=== PATIENT | female | born 1965 | race Caucasian/White ===

== ENCOUNTER 2023-03-19 07:29 | Day surgery (SDC) | payer OTHER, SELFPAY ==
--- OUTSIDE RECORDS SUMMARY | 2023-03-19 07:41 | XMS RPT_ITS | CCD ---
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 [employer], Inc. 01-07-2019 11:10-0500 Body surface area Derived from formula 2.32 m2 Jazmin Mojica RN [facility], Inc.; [employer]rera [employer]. 01-07-2019 11:10-0500 Body temperature 98.5 [degF] Jazmin Mojica RN [facility], [facility].; [employer]. 01-07-2019 11:10-0500 Body weight 132.45 kg Jazmin Mojica RN [facility], [facility].; [employer]rera [employer]. 01-07-2019 11:10-0500 Diastolic blood pressure 85 mm[Hg] Jazmin Mojica RN [facility], Inc.; [employer]. 01-07-2019 11:10-0500 Heart rate 78 /min Jazmin Mojica RN [facility] [employer], Inc.; [employer]. 01-07-2019 11:10-0500 Inhaled oxygen concentration 20 % Jazmin Mojica RN [facility] [employer], Inc.; [employer]. 01-07-2019 11:10-0500 SaO2% (BldA) [Mass fraction] 96 % Jazmin Mojica RN [facility] [employer], Inc.; [employer]. 01-07-2019 11:10-0500 Systolic blood pressure 128 mm[Hg] Jazmin Mojica RN [facility] [employer], Inc.; [employer]. 12-09-2018 10:43-0400 Body height 165.1 cm Portia Marino LPN [employer], Inc.; [employer]. 12-09-2018 10:43-0400 Body mass index (BMI) [Ratio] 48.42 kg/m2 Portia Marino LPN [employer], Inc.; [employer]. 12-09-2018 10:43-0400 Body surface area Derived from formula 2.32 m2 Portia Marino LPN [employer], [employer].; [employer]. 12-09-2018 10:43-0400 Body weight 132 kg Portia Marino LPN [employer], Inc.; [employer]. 12-09-2018 10:43-0400 Diastolic blood pressure 62 mm[Hg] Portia Marino LPN [employer], Inc.; [employer]. 12-09-2018 10:43-0400 Heart rate 80 /min Portia Marino LPN [employer], Inc.; [employer]. 12-09-2018 10:43-0400 Systolic blood pressure 146 mm[Hg] Portia Marino LPN [employer], Inc.; [employer]. 10-28-2018 08:14-0400 Body height 165.1 cm Portia Marino LPN [employer], Inc.; [employer]. 10-28-2018 08:14-0400 Body mass index (BMI) [Ratio] 48.59 kg/m2 Portia Marino LPN [facility]reraAegerion Pharm[employer] [facility], Inc.; [employer], Inc. 10-28-2018 08:14-0400 Body surface area Derived from formula 2.32 m2 Portiamarck Marino LPN [facility], Inc.; [employer] Inc. 10-28-2018 08:140400 Body weight 132.45 kg Portia Marino LPN [facility], Inc.; [employer], Inc. 10-28-2018 08:14-0400 Diastolic blood pressure 80 mm[Hg] Portia [facility]ino [facility]PR[facility] HospitalEv[facility], Inc.; [employer]rera[employer], Inc. 10-28-2018 08:140400 Heart rate 69 /min Portia Marino LPN [facility], Inc.; [employer], Inc. 10-28-2018 08:14-0400 Systolic blood pressure 120 mm[Hg] Portia Marino LPN [employer], Inc.; [employer], Inc. 08-09-2018 11:20-0400 Body height 165.1 cm Portia Marino LPN [facility] [employer], Inc.; [employer], Inc. 08-09-2018 11:20-0400 Body mass index (BMI) [Ratio] 48.59 kg/m2 Portia Marino LPN [employer], Inc.; [employer] Inc. 08-09-2018 11:20-0400 Body surface area Derived from formula 2.32 m2 Portia Marino LPN [employer], Inc.; [employer]. 08-09-2018 11:20-0400 Body temperature 98.9 [degF] Portia Marino LPN [facility] chanel [employer], Inc.; HerreraEv[employer], Inc. 08-09-2018 11:20-0400 Body weight 132.45 kg Portia Marino LPN [facility] [employer], Inc[employer]i ly [employer], Inc.; [employer]rera[employer]et [employer] Inc. 08-09-2018 11:20-0400 Diastolic blood pressure 79 mm[Hg] Portia Marino LPN [employer], Inc.; [employer], Inc. 08-09-2018 11:20-0400 Heart rate 72 /min Portia Marino LPN [employer], Inc.; [employer], Inc. 08-09-2018 11:20-0400 Inhaled oxygen concentration 20 % Portia Marino LPN [employer], Inc.; [employer], Inc. 08-09-2018 11:20-0400 SaO2% (BldA) [Mass fraction] 95 % Portia Marino LPN [employer], Inc.; [employer], Inc. 08-09-2018 11:20-0400 Systolic blood pressure 127 mm[Hg] Portia Marino LPN [employer], Inc.; [employer], Inc. 05-29-2018 09:11-0400 Body height 165.1 cm Portia Marino LPN [employer], Inc.; [employer], Inc. 05-29-2018 09:11-0400 Body temperature 98.2 [degF] Portia Marino LPN [employer], [employer] chanel [employer], Inc.; [employer], Inc. 05-29-2018 09:11-0400 Diastolic blood pressure 88 mm[Hg] Portia Marino LPN [employer], Inc.; [employer], Inc. 05-29-2018 09:11-0400 Heart rate 67 /min Portia Marino LPN [employer] Inc.; [employer], Inc. 05-29-2018 09:11-0400 Inhaled oxygen concentration 20 % Portia Marino LPN [employer], Inc.; [employer], Inc. 05-29-2018 09:11-0400 SaO2% (BldA) [Mass fraction] 97 % Portia Marino LPN [employer], Inc.; [employer], Inc. 05-29-2018 09:11-0400 Systolic blood pressure 127 mm[Hg] Portia Marino LPN [employer], Inc.; [employer], Inc. 11-12-2017 09:25-0400 Body height 165.1 cm Portia Lamzeferino REN [facility], Inc.; [employer], Inc. 11-12-2017 09:25-0400 Body mass index (BMI) [Ratio] 46.52 kg/m2 Portia Goetzlise REN [employer], Inc.; [employer], Inc. 11-12-2017 09:25-0400 Body surface area Derived from formula 2.28 m2 Portia Goetzlise REN [employer], Inc.; [employer], Inc. 11-12-2017 09:250400 Body weight 126.81 kg Portia Goetzlise REN [facility], Inc.; [employer], Inc. 11-12-2017 09:25-0400 Diastolic blood pressure 79 mm[Hg] Portia Goetzlise REN [employer], Inc.; [employer], Inc. 11-12-2017 09:25-0400 Heart rate 75 /min Portia Goetzlise REN [facility], Inc.; [employer], Inc. 11-12-2017 09:25-0400 Systolic blood pressure 117 mm[Hg] Portia Islasleroy REN [employer], Inc.; [employer], Inc. 05-16-2017 09:10-0400 Body height 165.1 cm Theresa Vega PA-C Work Phone: [employer]et [employer] Inc.; [employer]reraEv[employer], Inc. 05-16-2017 09:10-0400 Body mass index (BMI) [Ratio] 50.92 kg/m2 Theresa Vega PA-C Work Phone: [employer].; [employer], Inc. 05-16-2017 09:100400 Body surface area Derived from formula 2.37 m2 Theresa Vega PA-C Work Phone: [employer].; [employer] Inc. 05-16-2017 09:10-0400 Body weight 138.8 kg Theresa Vega PA-C Work Phone: [employer].; [employer]. 05-16-2017 09:10-0400 Diastolic blood pressure 91 mm[Hg] Theresa Vega PA-C Work Phone: [employer].; [employer]. 05-16-2017 09:10-0400 Heart rate 79 /min Theresa Vega PA-C Work Phone: [employer].; [employer]. 05-16-2017 09:10-0400 Systolic blood pressure 141 mm[Hg] Theresa Vega PA-C Work Phone: [employer].; [employer]. 02-01-2017 11:23-0500 Body height 165.1 cm Portia Marino LPN [employer], Inc.; [employer] 02-01-2017 11:23-0500 Body mass index (BMI) [Ratio] 49.59 kg/m2 Portia Marino LPN [employer].; [employer]. 02-01-2017 11:23-0500 Body surface area Derived from formula 2.34 m2 Portia Marino LPN [employer].; [employer]. 02-01-2017 11:23-0500 Body temperature 98.5 [degF] Portia Marino LPN [employer] [employer], Inc[employer] chanel [employer].; [employer] 02-01-2017 11:23-0500 Body weight 135.17 kg Portia Marino LPN [employer], Inc.; [employer]. 02-01-2017 11:23-0500 Diastolic blood pressure 86 mm[Hg] Portia Marino LPN [employer].; [employer]. 02-01-2017 11:23-0500 Heart rate 92 /min Portia Marino LPN [employer], Inc.; [employer]. 02-01-2017 11:23-0500 Inhaled oxygen concentration 20 % Portia Marino LPN [facility], Inc.; [employer]. 02-01-2017 11:23-0500 SaO2% (BldA) [Mass fraction] 98 % Portia Marino LPN [facility] [employer], Inc.; [employer]. 02-01-2017 11:23-0500 Systolic blood pressure 140 mm[Hg] Portia Marino LPN [facility] [employer], Inc.; [employer], [employer]. 11-06-2016 10:32-0400 Body height 165.1 cm Portia Marino LPN [employer], Inc.; [employer]. 11-06-2016 10:32-0400 Body mass index (BMI) [Ratio] 48.92 kg/m2 Portia Marino LPN [employer], Inc.; [employer]. 11-06-2016 10:32-0400 Body surface area Derived from formula 2.33 m2 Portia Marino LPN [employer], Inc.; [employer]. 11-06-2016 10:32-0400 Body weight 133.36 kg Portia Marino LPN [employer], Inc.; [employer]. 11-06-2016 10:32-0400 Diastolic blood pressure 88 mm[Hg] Portia Marino LPN [employer], Inc.; [employer]. 11-06-2016 10:32-0400 Heart rate 69 /min Portia Marino LPN [facility], Inc.; [employer]. 11-06-2016 10:32-0400 Systolic blood pressure 156 mm[Hg] Portia Marino LPN [employer], Inc.; [employer]. 10-30-2016 08:00-0400 Body height 165.1 cm Portia Marino LPN [employer], Inc.; [employer]. 10-30-2016 08:00-0400 Body mass index (BMI) [Ratio] 48.92 kg/m2 Portia Marino LPN [facility]reraAegerion Pharm[employer] [facility], Inc.; [employer], Inc. 10-30-2016 08:00-0400 Body surface area Derived from formula 2.33 m2 Portia Marino LPN [facility], Inc.; [employer], Inc. 10-30-2016 08:00-0400 Body weight 133.36 kg Portia Marino LPN [facility], Inc.; [employer], Inc. 10-30-2016 08:00-0400 Diastolic blood pressure 93 mm[Hg] Portia Marino LPN [employer]Aegerion [employer] [facility], Inc.; [employer], Inc. 10-30-2016 08:00-0400 Heart rate 67 /min Portia Marino LPN [facility], Inc.; [employer], Inc. 10-30-2016 08:00-0400 Systolic blood pressure 143 mm[Hg] Portia Marino LPN [employer], Inc.; [employer], Inc. 10-12-2016 16:20-0400 Diastolic blood pressure 87 mm[Hg] Jazmin Mojica RN [facility], Inc.; [employer], Inc. 10-12-2016 16:20-0400 Heart rate 77 /min Jazmin Mojica RN [facility] [employer], Inc.; [employer], Inc. 10-12-2016 16:20-0400 Systolic blood pressure 145 mm[Hg] Jazmin Mojica RN [facility] [employer], Inc.; [employer], Inc. 07-14-2016 14:35-0400 Body height 165.1 cm Nona Caicedo RN [facility]reraAegerion Pharm[employer] [facility], Inc.; [employer], Inc. 07-14-2016 14:35-0400 Body mass index (BMI) [Ratio] 47.59 kg/m2 Nona Caicedo RN [facility] [employer], Inc.; [employer], Inc. 07-14-2016 14:35-0400 Body surface area Derived from formula 2.3 m2 Nona Caicedo RN [facility] [employer], Inc.; [employer], [facility]. 07-14-2016 14:35-0400 Body weight 129.73 kg Nona Caicedo RN [facility], Inc.; [employer]. 07-14-2016 14:35-0400 Diastolic blood pressure 76 mm[Hg] Nona Caicedo RN [facility], Inc.; [employer] Inc. 07-14-2016 14:35-0400 Heart rate 85 /min Nona Caicedo RN [facility] Inc.; [employer]. 07-14-2016 14:35-0400 Systolic blood pressure 126 mm[Hg] Nona Caicedo RN [facility] [employer] Inc.; [employer]. 04-20-2016 10:15-0500 Body height 162.56 cm Portia Marino LPN [employer], Inc.; [employer]. 04-20-2016 10:15-0500 Body mass index (BMI) [Ratio] 48.4 kg/m2 Portia Marino LPN [employer]. 04-20-2016 10:15-0500 Body surface area Derived from formula 2.26 m2 Portia Marino LPN [employer], Inc.; [employer], [employer]. 04-20-2016 10:15-0500 Body weight 127.92 kg Portia Marino LPN [facility], Inc.; [employer]. 04-20-2016 10:15-0500 Diastolic blood pressure 84 mm[Hg] Portia Marino LPN [employer] Inc.; [employer]. 04-20-2016 10:15-0500 Heart rate 71 /min Portia Marino LPN [employer], Inc.; [employer]. 04-20-2016 10:15-0500 Systolic blood pressure 124 mm[Hg] Portia Marino LPN [employer] Inc.; [employer]. 03-16-2016 14:22-0500 Body height 162.56 cm Lynn Sepulveda LPN [employer], [employer]. 03-16-2016 14:22-0500 Body mass index (BMI) [Ratio] 48.92 kg/m2 Lynn K Mutersbaugh REMEDIATION CONSULTANT [employer], Inc.; [employer]. 03-16-2016 14:22-0500 Body surface area Derived from formula 2.27 m2 Lynn K Mutersbaugh REMEDIATION CONSULTANT [employer] Inc.; [employer]. 03-16-2016 14:22-0500 Body weight 129.28 kg Lynn K Mutersbaugh REMEDIATION CONSULTANT [employer].; [employer]. 03-16-2016 14:22-0500 Diastolic blood pressure 82 mm[Hg] Lynn K Mutersbaugh REMEDIATION CONSULTANT [employer].; [employer]. 03-16-2016 14:22-0500 Heart rate 86 /min Lynn K Mutersbaugh REMEDIATION CONSULTANT [employer].; [employer]. 03-16-2016 14:22-0500 Systolic blood pressure 143 mm[Hg] Lynn K Mutersbaugh REMEDIATION CONSULTANT [employer].; [employer]. 12-15-2015 14:06-0400 Body height 162.56 cm Claudia Stone RN [employer].; [employer]. 12-15-2015 14:06-0400 Body mass index (BMI) [Ratio] 50.17 kg/m2 Claudia Stone RN [employer].; [employer]. 12-15-2015 14:06-0400 Body surface area Derived from formula 2.3 m2 Claudia Stone RN [employer].; [employer]. 12-15-2015 14:06-0400 Body temperature 99.6 [degF] Claudia Stone RN [employer].; [employer]. 12-15-2015 14:06-0400 Body weight 132.59 kg Claudia Stone RN [employer].; [employer]. 12-15-2015 14:06-0400 Diastolic blood pressure 76 mm[Hg] Claudia Stone RN [facility] [employer], Inc.; [employer], Inc. 12-15-2015 14:06-0400 Heart rate 78 /min Claudia Stone RN [facility] [employer], Inc.; [employer], Inc. 12-15-2015 14:06-0400 Systolic blood pressure 136 mm[Hg] Claudia Stone RN [facility] [employer], Inc.; [employer], Inc. 09-24-2015 09:24-0400 Body height 162.56 cm Portia Marino LPN [employer], Inc.; [employer], Inc. 09-24-2015 09:24-0400 Body mass index (BMI) [Ratio] 50.46 kg/m2 Portia Marino LPN [employer], Inc.; [employer], Inc. 09-24-2015 09:24-0400 Body surface area Derived from formula 2.3 m2 Portia Marino LPN [employer], Inc.; [employer], Inc. 09-24-2015 09:24-0400 Body weight 133.36 kg Portia Marino LPN [employer], Inc.; [employer], Inc. 09-24-2015 09:24-0400 Diastolic blood pressure 86 mm[Hg] Portia Marino LPN [employer], Inc.; [employer], Inc. 09-24-2015 09:24-0400 Heart rate 76 /min Portia Marino LPN [employer], Inc.; [employer], Inc. 09-24-2015 09:24-0400 Systolic blood pressure 129 mm[Hg] Portia Marino LPN [employer], Inc.; [employer], Inc. 09-13-2015 17:19-0400 Body height 162.56 cm Portia Marino LPN [employer], Inc.; [employer], Inc. 09-13-2015 17:19-0400 Body mass index (BMI) [Ratio] 49.78 kg/m2 Portia Marino LPN [employer], Inc.; [employer] 09-13-2015 17:19-0400 Body surface area Derived from formula 2.29 m2 Portia Marino LPN [employer], Inc.; [employer], Inc. 09-13-2015 17:19-0400 Body weight 131.54 kg Portia Ned REN [facility], Inc.; [employer], Inc. 09-13-2015 17:19-0400 Diastolic blood pressure 91 mm[Hg] Portia Marino LPN [employer], Inc.; [employer], Inc. 09-13-2015 17:19-0400 Heart rate 80 /min Portia Marino LPN [facility], Inc.; [employer], Inc. 09-13-2015 17:19-0400 Systolic blood pressure 150 mm[Hg] Portia Marino LPN [employer], Inc.; [employer], Inc. 03-22-2015 08:07-0500 Body height 162.56 cm Claudia Stone RN [facility] [employer], Inc.; [employer], Inc. 03-22-2015 08:07-0500 Body mass index (BMI) [Ratio] 52.18 kg/m2 Claudia Stone RN [employer], Inc.; [employer], Inc. 03-22-2015 08:07-0500 Body surface area Derived from formula 2.34 m2 Claudia Stone RN [employer], Inc.; [employer], Inc. 03-22-2015 08:07-0500 Body temperature 98.7 [degF] Claudia Stone RN [employer]et [employer] Inc.; [employer], Inc. 03-22-2015 08:07-0500 Body weight 137.89 kg Claudia Stone RN [employer], Inc.; [employer], Inc. 03-22-2015 08:07-0500 Diastolic blood pressure 85 mm[Hg] Claudia Stone RN [employer], Inc.; [employer] 03-22-2015 08:07-0500 Heart rate 87 /min Claudia Stone RN [employer].; [employer] [facility]. 03-22-2015 08:07-0500 Systolic blood pressure 147 mm[Hg] Claudia Stone RN [facility].; [employer] [facility]. 02-15-2015 17:00-0500 Body weight 140.16 kg Theresa Iesha Vega PA-C Work Phone: [employer] 02-15-2015 17:00-0500 Diastolic blood pressure 92 mm[Hg] Theresa J Vega PA-C Work Phone: [employer] 02-15-2015 17:00-0500 Heart rate 74 /min Theresa Iesha Vega PA-C Work Phone: [employer]. 02-15-2015 17:00-0500 Systolic blood pressure 134 mm[Hg] Theresa Iesha Vega PA-C Work Phone: [employer]. 07-31-2014 11:32-0400 Body height 162.56 cm Theresa Iesha Vega PA-C Work Phone: [employer]. 07-31-2014 11:32-0400 Body mass index (BMI) [Ratio] 49.78 kg/m2 Theresa Iesha Vega PA-C Work Phone: [employer]. 07-31-2014 11:32-0400 Body surface area Derived from formula 2.29 m2 Theresa J Vega PA-C Work Phone: [employer]. 07-31-2014 11:32-0400 Body temperature 99 [degF] Theresa J Vega PA-C Work Phone: [employer]. 07-31-2014 11:32-0400 Body weight 131.54 kg Theresa J Vega PA-C Work Phone: [employer]. 07-31-2014 11:32-0400 Diastolic blood pressure 93 mm[Hg] Theresa Julian Vega PA-C Work Phone: [employer] 07-31-2014 11:32-0400 Heart rate 74 /min Theresa Julian Vega PA-C Work Phone: [employer]. 07-31-2014 11:32-0400 Systolic blood pressure 143 mm[Hg] Theresa Julian Vega PA-C Work Phone: [employer]. 07-13-2014 17:00-0400 Body height 162.56 cm Theresa Julian Vega PA-C Work Phone: [employer]. 07-13-2014 17:00-0400 Body mass index (BMI) [Ratio] 50.46 kg/m2 Theresa Julian Vega PA-C Work Phone: [employer]. 07-13-2014 17:00-0400 Body surface area Derived from formula 2.3 m2 Theresa Julian Vega PA-C Work Phone: [employer]. 07-13-2014 17:00-0400 Body weight 133.36 kg Theresa Julian Vega PA-C Work Phone: [employer]. 07-13-2014 17:00-0400 Diastolic blood pressure 80 mm[Hg] Theresa Iesha Vega PA-C Work Phone: [employer]. 07-13-2014 17:00-0400 Heart rate 79 /min Theresa Iesha Vega PA-C Work Phone: [employer] 07-13-2014 17:00-0400 Systolic blood pressure 115 mm[Hg] Theresa Vega PA-C Work Phone: [employer] 06-08-2014 17:09-0400 Body weight 129.73 kg Leslee Bahena LPN [employer] 06-08-2014 17:09-0400 Diastolic blood pressure 95 mm[Hg] Leslee Bahena LPN [employer] 06-08-2014 17:09-0400 Heart rate 72 /min Leslee Bahena LPN [employer] 06-08-2014 17:09-0400 Systolic blood pressure 139 mm[Hg] Leslee Bahena LPN [employer] 10-16-2013 16:07-0400 Body weight 119.3 kg Portia Marino LPN [employer] 10-16-2013 16:07-0400 Diastolic blood pressure 80 mm[Hg] Portia Marino LPN [employer] 10-16-2013 16:07-0400 Heart rate 72 /min Portia Marino LPN [employer] 10-16-2013 16:07-0400 Systolic blood pressure 118 mm[Hg] Portia Marino LPN [employer] 09-18-2013 09:18-0400 Body weight 123.83 kg Theresa Vega PA-C Work Phone: [employer] 09-18-2013 09:18-0400 Diastolic blood pressure 104 mm[Hg] Theresa Vega PA-C Work Phone: [employer] 09-18-2013 09:18-0400 Heart rate 75 /min Theresa Vega PA-C Work Phone: [employer] 09-18-2013 09:18-0400 Systolic blood pressure 163 mm[Hg] Theresa Vega PA-C Work Phone: [employer] Encounters Encounter Date Encounter Type Care Provider Facility Start: 01-26-2023 End: 01-26-2023 Theresa Vigiler PA-C Work Phone: [employer]. Start: 01-24-2023 End: 01-24-2023 Theresa Vega PA-C Work Phone: [employer]. Start: 01-22-2023 End: 01-22-2023 Theresa Vega PA-C Work Phone: [employer]. Start: 01-18-2023 End: 01-18-2023 Theresa Vega PA-C Work Phone: [employer]. Start: 01-12-2023 End: 01-12-2023 Office outpatient visit 25 minutes Theresa Vigiler PA-C Work Phone: [employer]. Start: 09-18-2022 End: 09-18-2022 Theresa Vega PA-C Work Phone: [employer]. Start: 08-23-2022 End: 08-23-2022 ambulatory THERESA VEGA [facility] Start: 08-21-2022 End: 08-21-2022 Evaluation finding Theresa Vega PA-C Work Phone: [employer]. Start: 08-21-2022 End: 08-21-2022 Theresa Vega PA-C Work Phone: [employer]. Start: 08-21-2022 End: 08-21-2022 Theresa Vega PA-C [facility]: [facility] Start: 07-26-2022 End: 07-26-2022 Patient encounter status [facility].; [facility]. Start: 07-26-2022 End: 07-26-2022 Theresa Vega PA-C Work Phone: [facility]. Start: 07-05-2022 End: 07-05-2022 Theresa Vega PA-C Work Phone: [facility]. Start: 06-09-2022 End: 06-09-2022 Office outpatient visit 15 minutes Theresa Vega PA-C Work Phone: [facility] Start: 03-03-2022 End: 03-03-2022 ambulatory [facility] Start: 01-30-2022 End: 01-30-2022 Theresa Vega PA-C Work Phone: [facility]. Start: 01-24-2022 End: 01-24-2022 Office outpatient visit 15 minutes Theresa Vega PA-C Work Phone: [facility] Start: 01-13-2022 End: 01-13-2022 Theresa Vega PA-C Work Phone: [facility] Start: 01-10-2022 End: 01-10-2022 ambulatory [facility] Start: 12-30-2021 End: 12-30-2021 Office outpatient visit 25 minutes Theresa Vega PA-C Work Phone: [facility] Start: 11-18-2021 End: 11-18-2021 Theresa Vega PA-C Work Phone: [facility]. Start: 08-05-2021 End: 08-05-2021 Theresa Vega PA-C Work Phone: [facility] [employer]. Start: 06-23-2021 End: 06-23-2021 Patient encounter status Theresa Vega PA-C Work Phone: [employer]. Start: 06-23-2021 End: 06-23-2021 Theresa Vega PA-C Work Phone: [employer]. Start: 05-30-2021 End: 05-30-2021 Office outpatient visit 15 minutes Theresa Vega PA-C Work Phone: [employer]. Start: 05-06-2021 End: 05-06-2021 Office outpatient visit 15 minutes Theresa Vega PA-C Work Phone: [employer]. Start: 04-29-2021 End: 04-29-2021 Theresa Vega PA-C Work Phone: [employer]. Start: 02-09-2021 End: 02-10-2021 Theresa Vega PA-C Work Phone: [employer]. Start: 02-03-2021 End: 02-03-2021 Office outpatient visit 15 minutes Theresa Vega PA-C Work Phone: [employer]. Start: 01-24-2021 End: 01-24-2021 Theresa Vega PA-C Work Phone: [employer]. Start: 11-19-2020 End: 11-19-2020 Office outpatient visit 15 minutes Theresa Vega PA-C Work Phone: [employer]. Start: 11-10-2020 End: 11-10-2020 Office outpatient visit 15 minutes Theresa Vega PA-C Work Phone: [employer]. Start: 11-08-2020 End: 11-08-2020 Theresa Vega PA-C Work Phone: [employer]. Start: 11-08-2020 End: 11-08-2020 Theresa Vega PA-C Work Phone: [employer] Start: 11-05-2020 End: 11-05-2020 Office outpatient visit 15 minutes Theresa Vega PA-C Work Phone: [employer]. Start: 05-20-2020 End: 05-20-2020 Office outpatient visit 25 minutes Theresa Vega PA-C Work Phone: [employer]. Start: 05-06-2020 End: 05-06-2020 Theresa Vega PA-C Work Phone: [employer] Start: 12-05-2019 End: 12-05-2019 Office outpatient visit 15 minutes Theresa Vega PA-C Work Phone: [employer] Start: 06-12-2019 End: 06-12-2019 Office outpatient visit 25 minutes Theresa Vega PA-C Work Phone: [employer] Start: 03-31-2019 End: 03-31-2019 Theresa Vega PA-C Work Phone: [employer] Start: 03-20-2019 End: 03-20-2019 Office outpatient visit 15 minutes Theresa Vega PA-C Work Phone: [employer] Start: 01-07-2019 End: 01-07-2019 Office outpatient visit 15 minutes Theresa Vega PA-C Work Phone: [employer] Start: 12-09-2018 End: 12-09-2018 Medical examinations/reports status Theresa Vega PA-C Work Phone: [employer]; [employer]. Start: 12-09-2018 End: 12-09-2018 Periodic preventive med est patient 40-64yrs Theresa Vega PA-C Work Phone: [employer]. Start: 10-28-2018 End: 10-28-2018 Office outpatient visit 15 minutes Theresa Vega PA-C Work Phone: [employer]. Start: 09-23-2018 End: 09-23-2018 Theresa Vega PA-C Work Phone: [employer]. Start: 09-13-2018 End: 09-13-2018 Theresa Vega PA-C Work Phone: [employer]. Start: 09-06-2018 End: 09-06-2018 Theresa Vega PA-C Work Phone: [employer]. Start: 08-09-2018 End: 08-09-2018 Office outpatient visit 15 minutes Theresa Vega PA-C Work Phone: [employer]. Start: 06-03-2018 End: 06-03-2018 Theresa Vega PA-C Work Phone: [employer]. Start: 05-29-2018 End: 05-29-2018 Office outpatient visit 25 minutes Theresa Vega PA-C Work Phone: [employer]. Start: 05-17-2018 End: 05-17-2018 Theresa Vega PA-C Work Phone: [employer]. Start: 01-02-2018 End: 01-02-2018 Theresa Vega PA-C Work Phone: [employer]. Start: 11-12-2017 End: 11-12-2017 Medical examinations/reports status Portia Marino LPN [employer]. Start: 11-12-2017 End: 11-12-2017 Periodic preventive med est patient 40-64yrs Theresa Vega PA-C Work Phone: [employer]. Start: 09-03-2017 End: 09-03-2017 Theresa Vega PA-C Work Phone: [employer] Start: 08-06-2017 End: 08-06-2017 Theresa Vega PA-C Work Phone: [employer] Start: 07-06-2017 End: 07-06-2017 Theresa Vega PA-C Work Phone: [employer]. Start: 07-05-2017 End: 07-05-2017 Theresa Vega PA-C Work Phone: [employer]. Start: 06-06-2017 End: 06-06-2017 Theresa Vega PA-C Work Phone: [employer]. Start: 05-30-2017 End: 05-31-2017 Theresa Vega PA-C Work Phone: [employer]. Start: 05-23-2017 End: 05-24-2017 Theresa Vega PA-C Work Phone: [employer]. Start: 05-16-2017 End: 05-16-2017 Office outpatient visit 25 minutes Theresa Vega PA-C Work Phone: [employer]. Start: 05-14-2017 End: 05-14-2017 Theresa Vega PA-C Work Phone: [employer]. Start: 05-09-2017 End: 05-09-2017 Theresa Vega PA-C Work Phone: [employer]. Start: 02-01-2017 End: 02-01-2017 Office outpatient visit 15 minutes Theresa Vega PA-C Work Phone: [employer]. Start: 11-06-2016 End: 11-09-2016 Office outpatient visit 15 minutes Theresa Vega PA-C Work Phone: [employer]. Start: 10-30-2016 End: 10-30-2016 Office outpatient visit 15 minutes Theresa Vega PA-C Work Phone: [employer]. Start: 10-12-2016 End: 10-12-2016 Theresa Vega PA-C Work Phone: [employer]. Start: 10-05-2016 End: 10-06-2016 Theresa Vega PA-C Work Phone: [employer]. Start: 09-07-2016 End: 09-07-2016 Theresa Vega PA-C Work Phone: [employer]. Start: 08-18-2016 End: 08-18-2016 Theresa Vega PA-C Work Phone: [employer]. Start: 08-11-2016 End: 08-11-2016 Theresa Vega PA-C Work Phone: [employer]. Start: 08-10-2016 End: 08-10-2016 Theresa Vega PA-C Work Phone: [employer]. Start: 08-04-2016 End: 08-04-2016 Sixto POON [facility] Start: 08-03-2016 End: 08-03-2016 Theresa Vega PA-C Work Phone: [employer]. Start: 07-27-2016 End: 07-27-2016 Theresa Vega PA-C Work Phone: [employer]. Start: 07-20-2016 End: 07-20-2016 Theresa Vega PA-C Work Phone: [employer]. Start: 07-17-2016 End: 07-17-2016 Theresa Vega PA-C Work Phone: [employer]. Start: 07-14-2016 End: 07-17-2016 Theresa Vega PA-C Work Phone: [employer]. Start: 04-27-2016 End: 04-27-2016 Theresa Vega PA-C Work Phone: [employer]. Start: 04-20-2016 End: 04-23-2016 Patient encounter status Theresa Vega PA-C Work Phone: [employer]. Start: 04-20-2016 End: 04-23-2016 Periodic preventive med est patient 40-64yrs Theresa Vega PA-C Work Phone: [employer] Start: 04-19-2016 End: 04-19-2016 Theresa Vega PA-C Work Phone: [employer] Start: 04-11-2016 End: 04-12-2016 Theresa Vega PA-C Work Phone: [employer] Start: 03-20-2016 End: 03-20-2016 Theresa Vega PA-C Work Phone: [employer]. Start: 03-16-2016 End: 03-16-2016 Theresa Vega PA-C Work Phone: [employer]. Start: 12-15-2015 End: 12-15-2015 Theresa Vega PA-C Work Phone: [employer] Start: 09-24-2015 End: 09-24-2015 Theresa Vega PA-C Work Phone: [employer]. Start: 09-13-2015 End: 09-13-2015 Theresa Vega PA-C Work Phone: [employer]. Start: 03-22-2015 End: 03-22-2015 Theresa Vega PA-C Work Phone: [employer] Start: 03-22-2015 End: 03-22-2015 Theresa Vega PA-C Work Phone: [employer]. Start: 02-15-2015 End: 02-15-2015 Theresa Vega PA-C Work Phone: [employer]. Start: 10-12-2014 End: 10-12-2014 Theresa Vega PA-C Work Phone: [employer]. Start: 07-31-2014 End: 07-31-2014 Theresa Vega PA-C Work Phone: [facility] Start: 07-16-2014 End: 07-16-2014 Theresa Vega PA-C Work Phone: [facility]. Start: 07-13-2014 End: 07-15-2014 Routine gynecological examination Theresa Vega PA-C Work Phone: [facility].; [facility]. Start: 07-13-2014 End: 07-15-2014 Theresa Vega PA-C Work Phone: [employer] [facility]. Start: 06-19-2014 End: 06-22-2014 Theresa Vega PA-C Work Phone: [facility]. Start: 06-08-2014 End: 06-08-2014 Theresa Vega PA-C Work Phone: [facility]. Start: 10-16-2013 End: 10-16-2013 Theresa Vega PA-C Work Phone: [employer] [facility]. Start: 09-18-2013 End: 09-18-2013 Theresa Vega PA-C Work Phone: [employer] [facility]. Start: 06-23-2010 End: 06-23-2010 Theresa Vega PA-C Work Phone: [employer] [facility]. Start: 06-23-2010 End: 06-23-2010 Theresa Vega PA-C Work Phone: [employer] [facility]. Start: 06-09-2010 End: 06-10-2010 Theresa Vega PA-C Work Phone: [facility]. Start: 04-26-2010 End: 04-27-2010 Theresa Vega PA-C Work Phone: [facility] Evaluation finding Dhruv Valle LPN [facility], [facility].; [facility]. Medical examinations/reports status Ginny Monroe LPN [facility].; [facility] Patient encounter status Dhruv Valle REM[employer]IATION CONSULTANT [facility].; [facility] Patient encounter status Portia Ned REMEDIATION CONSULTANT [facility].; [facility] Routine gynecologica l examination Ginny Monroe REMEDIATION CONSULTANT [facility].; [facility] Procedures Date Procedure Procedure Detail Performing Clinician Start: 08-21-2022 End: 08-24-2022 Ct abdomen & pelvis w/contrast material Theresa Vega PA-C Work Phone: Start: 07-26-2022 End: 07-26-2022 Depression screening Jena Up REMEDIATION CONSULTANT Start: 07-26-2022 End: 07-26-2022 Scr dep neg, no plan reqd Jena bailey REMEDIATION CONSULTANT Start: 07-05-2022 End: 07-05-2022 Lab findings surveillance Jena marieer REMEDIATION CONSULTANT Start: 07-05-2022 End: 07-05-2022 Jena Annel L PN Start: 07-05-2022 End: 07-05-2022 Jena Annel L PN Start: 12-30-2021 End: 03-03-2022 Screening digital breast tomosynthesis bi Theresa YADAV-C Work Phone: Start: 12-30-2021 End: 01-11-2022 Us soft tissue head & neck real time imge docm Theresa YADAV-C Work Phone: Start: 06-23-2021 End: 06-23-2021 Depression screening Theresa YADAV -C Work Phone: Start: 06-23-2021 End: 06-23-2021 Microscopic examination of cervical Papanicolaou smear Jenanewton Up REMEDIATION CONSULTANT Start: 06-23-2021 End: 06-23-2021 Scr dep neg, no plan reqd Theresa dyer PA-C Work Phone: Start: 01-24-2021 End: 02-02-2021 Screening mammography bi 2-view breast inc cad Theresa MORELANDC Work Phone: Start: 01-12-2021 End: 01-12-2021 Screening mammography Jena Up REMEDIATION CONSULTANT Start: 11-10-2020 End: 11-10-2020 Pressurized/nonpressurized inhalation treatment Theresa Julian Vega PA-C Work Phone: Start: 11-08-2020 End: 11-08-2020 Radiologic exam chest 2 views Theresa Julian Vega PA-C Work Phone: Start: 05-20-2020 End: 05-21-2020 Radex foot complete minimum 3 views Theresa Julian Vega PA-C Work Phone: Start: 12-09-2018 End: 12-09-2018 Depression screening Theresa Julian Vega PA -C Work Phone: Start: 12-09-2018 End: 12-09-2018 Scr dep neg, no plan reqd Theresa Julian Yaritza er PA-C Work Phone: Start: 09-06-2018 End: 09-13-2018 Ct maxillofacial w/o contrast material Theresa Julian Vega PA-C Work Phone: Start: 08-06-2017 End: 08-06-2017 Vitamin b12 injection Theresa Julian Vega P A-C Work Phone: Start: 07-05-2017 End: 07-05-2017 Vitamin b12 injection Theresa Julian Vega P A-C Work Phone: Start: 06-06-2017 End: 06-06-2017 Vitamin b12 injection Theresa Julian Vega P A-C Work Phone: Start: 05-30-2017 End: 05-30-2017 Vitamin b12 injection Theresa Julian Vega P A-C Work Phone: Start: 05-23-2017 End: 05-23-2017 Vitamin b12 injection Theresa Julian Vega P A-C Work Phone: Start: 05-16-2017 End: 05-16-2017 Body mass index documented Theresa Julian Bipin brenda PA-C Work Phone: Start: 05-16-2017 End: 05-16-2017 Most recent diastol blood pres >/equal 90 mm hg Theresa Julian Vega PA-C Work Phone: Start: 05-16-2017 End: 05-16-2017 Most recent systolic blood pres>/equal 140 mm hg Theresa Julian Vega PA-C Work Phone: Start: 05-16-2017 End: 05-16-2017 Vitamin b12 injection Theresa Julian Vega P A-C Work Phone: Start: 02-01-2017 End: 02-01-2017 Body mass index documented Theresa Julian Pal brenda PA-C Work Phone: Start: 02-01-2017 End: 02-01-2017 Most recent diastolic blood pressure 80-89 mm hg Theresa Jluian Vega PA-C Work Phone: Start: 02-01-2017 End: 02-01-2017 Most recent systolic blood pres>/equal 140 mm hg Theresa Julian Vega PA-C Work Phone: Start: 11-06-2016 End: 11-08-2016 Radiologic exam knee complete 4/more views Theresa Julian Vega PA-C Work Phone: Start: 10-30-2016 End: 10-30-2016 Vitamin b12 injection Theresa Julian Vega P A-C Work Phone: Start: 10-05-2016 End: 10-05-2016 Vitamin b12 injection Theresa Julian Vega P A-C Work Phone: Start: 09-07-2016 End: 09-07-2016 Vitamin b12 injection Theresa Julian Vega P A-C Work Phone: Start: 08-10-2016 End: 08-10-2016 Vitamin b12 injection Theresa Julian Vega P A-C Work Phone: Start: 08-04-2016 End: 08-04-2016 Screening for malignant neoplasm of large intestine Jena Up LPN Start: 08-03-2016 End: 08-03-2016 Vitamin b12 injection Theresa Julian Vega P A-C Work Phone: Start: 07-27-2016 End: 07-27-2016 Vitamin b12 injection Theresa Julian Gary Rivera-C Work Phone: Start: 07-20-2016 End: 07-20-2016 Vitamin b12 injection Theresa Julian Gary Rivera-C Work Phone: Start: 07-17-2016 End: 07-17-2016 Jena Elizabeth PN Start: 04-27-2016 End: 05-03-2016 Radex fingr minimum 2 views Theresaamber soto PA-C Work Phone: Start: 04-20-2016 End: 11-14-2016 Depression screen annual hTeresa monsivais PA-C Work Phone: Start: 04-20-2016 End: 06-08-2016 Mammogram, screening Theresa Beatty Work Phone: Start: 09-13-2015 End: 09-14-2015 Dup-scan xtr veins unilateral/limited study Theresa Vega PA-C Work Phone: Start: 03-22-2015 End: 03-22-2015 Ceftriaxone sodium injection Jazmin Nguyễn PA-C Work Phone: Start: 07-13-2014 End: 07-13-2014 Cholecystectomy Jena Elizabeth PN section Jena Carloz du REMEDIATION CONSULTANT History of cholecystectomy J noemi Fer REMEDIATION CONSULTANT History of cholecystectomy Paula Vega PA-C Work Phone: History of cholecystectomy Paula asim Vega PA-C Work Phone: Plan of Treatment Date Care Activity Detail Author Start: 02-21-2023 Blood count reticulo cyte automated [facility] [employer] Start: 01-26-2023 Radex spine lumbosacral 2/3 views [facility] [employer] Start: 01-26-2023 Radex spine thoracic 2 views [facility] [employer] [facility] Start: 06-23-2021 [facility], [facility].; [facility] Start: 11-05-2020 Sars-cov-2 detection by dna/rna [employer]. Start: 03-20-2019 Screening mammograph y bi 2-view breast inc cad [employer] Start: 11-12-2017 Screening mammograph y bi 2-view breast inc cad [employer]. [employer] Immunizations Immunization Date Immunization Notes Care Provider Fa cilikalin 04-16-2020 Theresa Vega PA-C Work Phone: [employer] 03-19-2020 Theresa Vega PA-C Work Phone: [employer] 12-09-2018 influenza, injectabl e, quadrivalent, contains preservative Theresa Vega PA-C Work Phone: [employer] 03-22-2015 tetanus toxoid, reduced diphtheria toxoid, and acellular pertussis vaccine, adsorbed Theresa Vega PA-C Work Phone: [employer] NEGATED: Highlighted row has not occurred!12-09-2018 influenza, injectable, quadrivalent, contains preservative Theresa Vega PA-C Work Phone: [employer], [employer] Payers Date Payer Category Payer Unknown [id number] 1965 Unknown [id number] 1965 Unknown [id number] Unknown [id number] Unknown [id number] Unknown Social History Date Type Detail Facility Occasional alcohol use. [facility] [employer] [employer]. [facility] [facility] [employer] Current some day smoker. [facility].; [employer] Goals Date Patient Goal Desired Activity /State 01-02-2018 Summary Purpose Family History arthritis Status:Active Comments:Mother. Hypertension Status:Active Comments:Father. Skin Cancer Status:Active Comments:Father. Thyroid Cancer Status:Active Comments:Father. Advance Directives No Advanced Directives Records FoundNo Advanced Directives Records FoundNo Advanced Directives Records Found Additional Source Comments INFORMATION SOURCE (unrecogn ized section and content) DATE CREATED AUTHOR AUTHOR'S ORGANIZ ATION 08/23/2022 [facility] DATE CREATED AUTHOR AUTHOR'S ORGANIZ ATION 01/25/2023 [facility] FOR RECORDS PERTAINING TO PATIENTS WHO ARE OR HAVE BEEN ENROLLED IN A CHEMICAL DEPENDENCY/SUBSTANCEABUSE PROGRAM, SOME INFORMATION MAY BE OMITTED. This clinical summary was aggregated from multiple sources. Caution should be exercised in using it in the provision of clinical care. This summary normalizes information from multiple sources, and as a consequence, information in this document may materially change the coding, format and clinical context of patient data. In addition, data may be omitted in some cases. CLINICAL DECISIONS SHOULD BE BASED ON THE PRIMARY CLINICAL RECORDS. [employer] provides no warranty or guarantee of the accuracy or completeness of information in this document.
--- NOTE | 2023-03-19 07:42 | HP.PCM_ITS ---
History and Physical Date of Admission: 03/19/23 Visit Reasons: GERD/STOMACH TENDERNESS Chief Complaint: GERD/Epigastric pain Home Therapy Clinician Required: No Is patient in pain?: No Allergies No Known Allergies Allergy (Verified 10/20/22 08:58) Medications biotin 2,500 mcg capsule 2,500 mcg PO DAILY 07/21/19 [History Confirmed 10/20/22] hydrochlorothiazide 25 mg tablet tab PO 07/21/19 [History Confirmed 10/20/22] mecobalamin (vitamin B12) 5,000 mcg disintegrating tablet mcg PO 07/21/19 [History Confirmed 10/20/22] lisinopril 10 mg tablet 20 mg PO DAILY 10/20/22 [History Confirmed 10/20/22] omeprazole 20 mg capsule,delayed release 20 mg PO DAILY 10/20/22 [History Confirmed 10/20/22] [facility] Medical History (Updated 10/20/22 @ 08:55 by Evelin Davis) Epigastric abdominal pain History of colon polyps History of pancreatitis HTN (hypertension) Obesity Surgical History History of 3 sections History of cholecystectomy History of colonoscopy (~07/2016) Status post left foot surgery Family History (Updated 10/20/22 @ 08:56 by Evelin Davis) Father Hypertension Cancer melanoma and prostate Thyroid disorder Heart disease Social History (Updated 10/20/22 @ 08:56 by Evelin Davis) Smoking Status: Current every day smoker alcohol intake: current alcohol intake frequency: a few times a month substance use type: does not use HPI HPI HPI: 57-year-old female was referred by Eve Vega PA-C for surgical consultation regarding gastroesophageal reflux disease and a written compromise surgical consult will be returned to her. Patient is noting some epigastric pain. She was reinitiated on omeprazole therapy 20 mg daily. By report the patient has a history of pancreatitis. Presenting features are complicated by a BMI of 45. At [facility] on August 23, [address] the patient had a CT of the abdomen pelvis. Gallbladder is noted to be surgically absent. No acute findings were identified. I had seen her briefly June 2019 in follow-up of a colonoscopy July 2016 where a hyperplastic polyp was seen in her colon. We elected to delay further follow-up colonoscopy for 10 years. Is noting nonspecific abdominal bloating fullness sensation. Some reflux type symptoms. She has been on omeprazole with incomplete resolution. She otherwise feels well. She notes that when she was clinically examined she had tenderness in the epigastric area with palpation but at rest she is otherwise comfortable. 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[employer] [facility] General General: Yes weight change; No appetite, fatigue, colon cancer, breast cancer or weakness Additional Details: Intentionally lost 20 pounds over past 4-5 months HEENT HEENT: No difficulty swallowing, eye injury, eye surgery, swollen glands or hoarseness Endo Endocrine: No thyroid disease, diabetes mellitus, thyroid cancer, Hair loss, heat intolerance or cold intolerance Skin Skin: No rash or changing moles Breast Breast: No left breast lump, right breast lump, nipple discharge, breast pain, abnormal mammogram, abnormal US or breast enlargement Musc Musculoskeletal: Yes arthritis; No back problems, rheumatoid arthritis, gout or joint pain Cardio Cardiovascular: Yes high blood pressure; No murmur, pacemaker, heart disease, atrial fibrillation, heart attack, heart stent, palpitations, shortness of breat with exertion or chest pain Psych Psychiatric: No depression, anxiety or hearing voices Resp Respiratory: No shortness of breath, No sleep apnea, No cough, No COPD, No asthma, No emphysema and No wheezing Gastro Gastrointestinal: Yes abdominal pain, No nausea or vomiting, No diarrhea, No constipation, No blood in stool, No acid reflux, No hemorrhoids, No ulcers, No gallbladder problem and No black,tarry stools Additional Details: Upper abdominal tenderness upon palpation. Feels full and bloated at intervals [place] Hematologic: No blood thinners, No blood disorders, No bleeding, No anemia and No blood clots Neuro Neurologic: No system reviewed and no additional complaints, except as documented, No as per HPI, No abnormal gait, No abnormal hearing, No abnormal movements, No abnormal speech, No behavioral changes, No burning sensations, No confusion, No convulsions, No disequilibrium, No dizziness, No localized weakness, No frequent falls, No headache(s), No lack of coordination, No loss of vision, No memory loss, No numbness, No other visual disturbances, No radicular pain, No restless legs, No sensory deficit, No syncope, No tingling, No tremor(s), No weakness and No other Exam Const General: cooperative, healthy appearing, comfortable and no acute distress HENIN Head: normal to inspection Eyes General: appearance normal, both eyes and all related structures Neck Neck: normal visual inspection Resp Effort & Inspection: normal respiratory effort Auscultation: clear to auscultation bilaterally Cardio Rate: regular rate Rhythm: regular rhythm GI Palpation: soft and no hepatosplenomegaly Other: Mild tenderness to epigastric palpation though without mass. No palpable or visual hernia. Bowel sounds are present and unremarkable. Clinical exam is somewhat limited due to body habitus Musc Cervical Spine: normal cervical lordosis Skin General: no rashes or lesions noted Neuro General: patient alert, patient awake and patient oriented x3 Extrem General: no calf tenderness Psych Appearance: grossly normal Assessment and Plan Assessment and Plan (1) Epigastric abdominal pain: Status: Acute Plan: I recommended the patient a esophagogastroduodenoscopy with possible biopsy and colonoscopy with possible biopsy or polypectomy as indicated. Inspecting for potential source of postprandial fullness and epigastric discomfort and bloating will be pursued. She has had a personal history of previous hyperplastic polyp of the colon. She has had an opportunity to ask and have questions answered. We will schedule and proceed at her discretion. I am not finding symptoms that would correlate with pancreatitis. She has had a cholecystectomy and no further symptoms. Do not feel that we would need to pursue additional investigation pending the outcome of her upper and lower scope. That would be pending her ongoing symptoms. She has had an opportunity ask and have questions answered. We will proceed as noted. I appreciate the opportunity to continue with her surgical care Copy: WINSOME Gay M.D., F.A.C.S. I have examined the patient and the H&P has been reviewed. There are no clinical changes since date of exam. Dustin Poon M.D., F.A.C.S.
[2023-03-19] MEDS: Lactated Ringers 1,000 ML 15 ML IV (07:45)
[2023-03-19 07:54] VITALS: BP 135/87; PULSE 82; RESP 16; TEMP 36.6; O2SAT 97; BMI 49.6
--- NOTE | 2023-03-19 08:30 | EGD_PTH ---
PATHOLOGY RESULTS PATIENT: SARA TYLER LOC: EN U#:[id number] AGE/SX: 57/F ROOM: RE03/19/[address]: Dr. Dustin Poon MD : 1965 BED: DIS: 03/19/2023 SPEC #: [id number] RECD: 03/19/23 10:59 STATUS: JUVENAL REMic #: [id number] JAH: 03/19/23 08:[address]: Dustin Poon DEPT: SURGICAL PATHOLOGY RECD BY: Joyce Owens ENTERED: 03/19/23 11:00 SP TYPE: EGD BIOPSY OTHR DR: LEIF Gay Tissues: Duodenum, NOS Gastric mucous membrane Gastric mucous membrane Esophageal mucous membrane Esophageal mucous membrane Procedures: Surgery Specimen Level IV HEADER OPERATION: Colonoscopy, EGD with biopsies PRE-OP DIAGNOSIS: Epigastric abdominal pain TISSUE SUBMITTED: A - Duodenum biopsy, B - Antrum biopsy for H. pylori and path, C - Greater curvature polyp biopsy, D - Distal esophagus biopsy, E - Mid esophagus biopsy MICROSCOPIC DIAGNOSIS A. Duodenum, biopsy: No pathologic change. B. Gastric antrum, biopsy: Mild chronic inflammation. See comment. C. Stomach, greater curvature polyp, biopsy: Fundic gland polyp. D. Distal esophagus, biopsy: Fragments of benign squamous mucosa. No evidence of inflammation. E. Mid esophagus, biopsy: Fragments of benign squamous mucosa. No evidence of inflammation. AM:sugar 03/20/2023 COMMENT B. The results of immunohistochemistry for Helicobacter pylori will be reported separately ([id number]). MICROSCOPIC DESCRIPTION Slides are reviewed. GROSS DESCRIPTION A - Received in fixative is one container labeled with the patient's name and designated duodenum biopsy. The specimen consists of two irregular fragments of light thompson soft tissue that in aggregate measure 0.6 x 0.3 x 0.1 cm. The specimen is totally submitted in one cassette. B - Received in fixative is one container labeled with the patient's name and designated antrum biopsy. The specimen consists of one irregular fragment of light thompson soft tissue that measures 0.4 x 0.3 x 0.1 cm. The specimen is totally submitted in one cassette. C - Received in fixative is one container labeled with the patient's name and designated greater curvature polyp biopsy. The specimen consists of one irregular fragment of light thompson soft tissue that measures 0.3 x 0.3 x 0.1 cm. The specimen is totally submitted in one cassette. D - Received in fixative is one container labeled with the patient's name and designated distal esophagus biopsy. The specimen consists of one irregular fragment of light thompson soft tissue that measures 0.5 x 0.3 x 0.1 cm. The specimen is totally submitted in one cassette. E - Received in fixative is one container labeled with the patient's name and designated mid esophagus biopsy. The specimen consists of one irregular fragment of light thompson soft tissue that measures 0.8 x 0.3 x 0.1 cm. The specimen is totally submitted in one cassette. / SJ:rg 03/19/2023 TC:3 CPT: 49225 x5
--- NOTE | 2023-03-19 08:30 | IMM_PTH ---
PATHOLOGY RESULTS PATIENT: SARA TYLER LOC: EN U#:[id number] AGE/SX: 57/F ROOM: RE03/19/[address]: Dr. Dustin Poon MD : 1965 BED: DIS: 03/19/2023 SPEC #: [id number] RECD: 03/19/23 13:36 STATUS: JUVENAL REQ #: [id number] JAH: 03/19/23 08:[address]: Dustin Poon DEPT: IMMUNOHISTOCHEMISTRY RECD BY: [address] ENTERED: 03/19/23 13:45 SP TYPE: IMMUNO OTHR DR: LEIF Gay Tissues: Stomach, NOS Procedures: H Pylori (initial) PHYSICIAN & INSTITUTION [place] [id number] SPECIMEN INFORMATION: Tissue Source: B - Antrum Clinical Info: Epigastric abdominal pain Specimen Number: [id number] CPT code: 74916 METHODOLOGY: Deparaffinized sections of prefer/formalin-fixed tissue or PAP/DQ stained slides are incubated with monoclonal/polyclonal antibodies/oligonucleotide probes. Localization is made via biotin free immunoperoxidase method. Appropriate controls are performed and reacted as expected. Results on target cell population are indicated in the following table: RESULTS: ANTIBODY / CLONE RESULT Block B H Pylori (polyclonal) negative These tests were developed and their performance characteristics determined by [facility]. They may not have been cleared or approved by the U.S. Food and Drug Administration. The FDA has determined that such clearance or approval is not necessary. The above immunohistochemical/dualISH markers are ordered and reviewed by the Pathologist. INTERPRETATION: B. Antrum, biopsy: Negative for Helicobacter pylori organisms. AM:sugar 03/20/2023
[2023-03-19 08:55] VITALS: BP 135/87; BP 94/60; PULSE 79; RESP 16; TEMP 36.3; O2SAT 93
--- NOTE | 2023-03-19 08:55 | OP.CCLET_ITS ---
03/19/2023 Eve Vega Re : Upper GI endoscopy procedure for Alannah Vega This procedure was performed on Sunday, March 19, 2023. My impressions and recommendations are as follows: Impressions : - Z-line regular, 38 cm from the incisors. Biopsied. - Normal mid esophagus. Biopsied. - Multiple gastric polyps. Resected and retrieved. - Normal antrum. Biopsied. - Normal examined duodenum. Biopsied. Recommendations : - Discharge patient to home. - Resume previous diet. - Continue present medications. - Telephone my office for pathology results in 1 week. No acute disease identified endoscopically. Will await pathology on biopsies. My findings are described in the full procedure note, which is enclosed. If I can be of further assistance, please feel free to contact me at Doctor phone number(s): Work: . Sincerely, Dustin Poon MD 03/19/2023 8:54:44 AM This report has been signed electronically.
--- NOTE | 2023-03-19 08:55 | OP.EGD_ITS ---
Patient Name: Alannah Falcon Procedure Date: 03/19/2023 8:13 AM Date of : 1965 Age: 57 Procedure: Upper GI endoscopy Indications: Epigastric abdominal pain Providers: Dustin Poon MD Medicines: See the Anesthesia note for documentation of the administered medications Complications: No immediate complications. Procedure: Pre-Anesthesia Assessment: - Prior to the procedure, a History and Physical was performed, and patient medications and allergies were reviewed. The patient's tolerance of previous anesthesia was also reviewed. The risks and benefits of the procedure and the sedation options and risks were discussed with the patient. All questions were answered, and informed consent was obtained. Prior Anticoagulants: The patient has taken no anticoagulant or antiplatelet agents. ASA Grade Assessment: III - A patient with severe systemic disease. After reviewing the risks and benefits, the patient was deemed in satisfactory condition to undergo the procedure. After obtaining informed consent, the endoscope was passed under direct vision. Throughout the procedure, the patient's blood pressure, pulse, and oxygen saturations were monitored continuously. The Endoscope was introduced through the mouth, and advanced to the second part of duodenum. The upper GI endoscopy was accomplished without difficulty. The patient tolerated the procedure well. Scope In: 8:21:46 AM Scope Out: 8:27:43 AM Total Procedure Duration Time 0 hours 5 minutes 57 seconds Findings: The Z-line was regular and was found 38 cm from the incisors. Biopsies were taken with a cold forceps for histology. The mid esophagus was normal. Biopsies were taken with a cold forceps for histology. Multiple pedunculated and sessile polyps with no bleeding and no stigmata of recent bleeding were found on the greater curvature of the stomach. The polyp was removed with a cold biopsy forceps. Resection and retrieval were complete. The gastric antrum was normal. Biopsies were taken with a cold forceps for histology. The examined duodenum was normal. Biopsies were taken with a cold forceps for histology. Impression: - Z-line regular, 38 cm from the incisors. Biopsied. - Normal mid esophagus. Biopsied. - Multiple gastric polyps. Resected and retrieved. - Normal antrum. Biopsied. - Normal examined duodenum. Biopsied. Recommendation: - Discharge patient to home. - Resume previous diet. - Continue present medications. - Telephone my office for pathology results in 1 week. No acute disease identified endoscopically. Will await pathology on biopsies. Procedure Code(s): --- Professional --- 73740, Esophagogastroduodenoscopy, flexible, transoral; with biopsy, single or multiple Diagnosis Code(s): --- Professional --- K31.7, Polyp of stomach and duodenum R10.13, Epigastric pain CPT copyright 2021 [employer]. All rights reserved. The codes documented in this report are preliminary and upon master mechanic review may be revised to meet current compliance requirements. Dustin Poon MD 03/19/2023 8:54:44 AM This report has been signed electronically. Number of Addenda: 0 Note Initiated On: 03/19/2023 8:13 AM
--- NOTE | 2023-03-19 08:57 | OP.COLON_ITS ---
Patient Name: Alannah Falcon Procedure Date: 03/19/2023 8:28 AM Date of : 1965 Age: 57 Procedure: Colonoscopy Indications: Screening for colorectal malignant neoplasm Providers: Dustin Poon MD Medicines: See the Anesthesia note for documentation of the administered medications Patient Profile: Last Colonoscopy: 10 years ago. Complications: No immediate complications. Procedure: Pre-Anesthesia Assessment: - Prior to the procedure, a History and Physical was performed, and patient medications and allergies were reviewed. The patient's tolerance of previous anesthesia was also reviewed. The risks and benefits of the procedure and the sedation options and risks were discussed with the patient. All questions were answered, and informed consent was obtained. Prior Anticoagulants: The patient has taken no anticoagulant or antiplatelet agents. ASA Grade Assessment: III - A patient with severe systemic disease. After reviewing the risks and benefits, the patient was deemed in satisfactory condition to undergo the procedure. After I obtained informed consent, the scope was passed under direct vision. Throughout the procedure, the patient's blood pressure, pulse, and oxygen saturations were monitored continuously. The adult colonoscope was introduced through the anus and advanced to the cecum, identified by appendiceal orifice and ileocecal valve. The colonoscopy was somewhat difficult due to the patient's body habitus. The patient tolerated the procedure well. The quality of the bowel preparation was fair. The ileocecal valve and the appendiceal orifice were photographed. Scope In: 8:36:45 AM Scope Withdrawal Time 0 hours 6 minutes 27 seconds Scope Out: 8:49:01 AM Total Procedure Duration Time 0 hours 12 minutes 16 seconds Findings: The digital rectal exam findings include non-thrombosed external hemorrhoids, non-thrombosed internal hemorrhoids and internal hemorrhoids that prolapse with straining, but spontaneously regress to the resting position (Grade II). The colon (entire examined portion) appeared normal. Impression: - Preparation of the colon was fair. - Non-thrombosed external hemorrhoids, non-thrombosed internal hemorrhoids and internal hemorrhoids that prolapse with straining, but spontaneously regress to the resting position (Grade II) found on digital rectal exam. - The entire examined colon is normal. - No specimens collected. Recommendation: - Discharge patient to home. - Resume previous diet. - Continue present medications. - Repeat colonoscopy in 10 years for screening purposes. Procedure Code(s): --- Professional --- 45812, Colonoscopy, flexible; diagnostic, including collection of specimen(s) by brushing or washing, when performed (separate procedure) Diagnosis Code(s): --- Professional --- Z12.11, Encounter for screening for malignant neoplasm of colon K64.1, Second degree hemorrhoids K64.4, Residual hemorrhoidal skin tags CPT copyright 2021 [employer]. All rights reserved. The codes documented in this report are preliminary and upon staff internist office based only review may be revised to meet current compliance requirements. Dustin Poon MD 03/19/2023 8:57:11 AM This report has been signed electronically. Number of Addenda: 0 Note Initiated On: 03/19/2023 8:28 AM
--- NOTE | 2023-03-19 08:57 | OP.CCLET_ITS ---
03/19/2023 Eve Vega Re : Colonoscopy procedure for Alannah Vega This procedure was performed on Sunday, March 19, 2023. My impressions and recommendations are as follows: Impressions : - Preparation of the colon was fair. - Non-thrombosed external hemorrhoids, non-thrombosed internal hemorrhoids and internal hemorrhoids that prolapse with straining, but spontaneously regress to the resting position (Grade II) found on digital rectal exam. - The entire examined colon is normal. - No specimens collected. Recommendations : - Discharge patient to home. - Resume previous diet. - Continue present medications. - Repeat colonoscopy in 10 years for screening purposes. My findings are described in the full procedure note, which is enclosed. If I can be of further assistance, please feel free to contact me at Doctor phone number(s): Work: . Sincerely, Dustin Poon MD 03/19/2023 8:57:11 AM This report has been signed electronically.
[2023-03-19 09:00] VITALS: BP 135/87; BP 88/52; PULSE 80; RESP 16; O2SAT 91
[2023-03-19 09:10] VITALS: BP 135/87; BP 96/65; PULSE 68; RESP 16; TEMP 36.4; O2SAT 93
[2023-03-19 09:24] VITALS: BP 135/87
== END 2023-03-19 09:38 | disposition home or self-care (01) ==
LOC: EN 07:29 → AC 07:36
PROVIDERS: PCP Physician Assistant; Referring Provider Physician Assistant; Visit Provider Surgery
PROC: 0DJD8ZZ Inspection of Lower Intestinal Tract, Via Natural or Artificial Opening Endoscopic (ICD-10-PCS; CPT 45378; principal; 2023-03-19 08:25)
DX: R10.13 Epigastric pain (principal); K31.7 Polyp of stomach and duodenum; K21.9 Gastro-esophageal reflux disease without esophagitis; Z90.49 Acquired absence of other specified parts of digestive tract; F17.200 Nicotine dependence, unspecified, uncomplicated; K64.4 Residual hemorrhoidal skin tags; I10 Essential (primary) hypertension; K64.1 Second degree hemorrhoids; Z86.010 Personal history of colon polyps
CPT/HCPCS: 43239; 45378; 88305; 88342; J7120; J2405

== ENCOUNTER → 2024-07-03 | Outpatient (CLI) | payer OTHER, SELFPAY ==
--- NOTE | 2024-07-03 09:47 | VDLE_ITS ---
Reason For Study Reason For Study: BLE Pain RIGHT LEFT CFV is compressible, spontaneous, phasic, competent CFV is compressible, phasic, and INCOMPETENT for and demonstrates normal augmentation. greater than 1.0 second. FV is compressible, spontaneous, phasic, competent FV is compressible, spontaneous, phasic, competent and demonstrates normal augmentation. and demonstrates normal augmentation. POP V is compressible, spontaneous, phasic, competent POP V is compressible, spontaneous, phasic, competent and demonstrates normal augmentation. and demonstrates normal augmentation. T/P Trunk is compressible. T/P Trunk is compressible. PTV is compressible. PTV is compressible. RT PerV is compressible. LT PerV is compressible. SFJ is INCOMPETENT and measures 0.67 cm. SFJ is competent and measures 0.68 cm. ASV proximal thigh is INCOMPETENT for greater than GSV proximal thigh measures 0.51 x 0.47 cm. 0.5 seconds and measures 0.32 x 0.30 cm. GSV at knee measures 0.46 x 0.40 cm. GSV proximal thigh measures 0.71 x 0.70 cm. ASV distal thigh is INCOMPETENT for greater than 0.5 GSV at knee measures 0.53 x 0.44 cm. seconds and measures 0.41 x 0.42 cm. GSV above knee is competent. ASV proximal calf is INCOMPETENT for greater than 0.5 GSV below knee is INCOMPETENT for greater than 0.5 seconds and measures 0.62 x 0.81 cm. seconds. SSV mid calf is competent and measures 0.48 x 0.44 SSV mid calf is competent and measures 0.46 x 0.41 cm. cm. Posterior calf ASV at prox (SSV Branch) is Procedure INCOMPETENT for greater than 0.5 seconds and measures This is a venous duplex using B-mode, color flow and 0.38 cm. spectral Doppler. Exam performed in department. Multiple Accessory branches originating from GSV The exam was diagnostic. noted. Varicosities of Lt foot appear compressible and do not show reflux. Majority of these vessels do appear to arise from the GSV. VL/Venous Duplex US - Javier Extrem Interpretation Summary Deep veins of the bilateral lower extremities are patent and compressible segme ntally. There is no evidence of bilateral lower extremity deep vein thrombosis. The bilateral great saphenous veins appea r patent and compressible segmentally. Positive for reflux in the right saphenofemoral junction, accessory saphenous v ein in thigh, great saphenous vein below the knee. Positive for reflux in the left accessory saphenous vein in thigh, accessory sa phenous vein in calf. Ordering Physician: Senait Altamirano Referring Physician: Eve Vega Performed By: Jens Douglass RVT
== END | disposition home or self-care (01) ==
LOC: CVS 09:46
PROVIDERS: PCP Physician Assistant; Referring Provider Physician Assistant; Visit Provider Physician Assistant
DX: I83.899 Varicose veins of unspecified lower extremity with other complications (principal); R60.0 Localized edema
CPT/HCPCS: 93970

== ENCOUNTER 2024-09-18 08:29 | Day surgery (SDC) | payer OTHER, SELFPAY ==
[2024-09-17 11:32] VITALS: BMI 49.7
--- NOTE | 2024-09-18 09:11 | PCM.HP.STD ---
HPI - General HPI Narrative SARA TYLER, is a 59 F who presents for left lower extremity, specifically left foot, painful varicose veins. She previously had them excised ~40 years ago due to issues with phlebitis and they have slowly recurred. Because of location it creates difficultly wearing shoes due to the pain/tenderness. [facility] Medical History Liver anomaly, congenital KWON (nonalcoholic steatohepatitis) Gastric reflux Leg cramps Smoker Obesity Epigastric abdominal pain HTN (hypertension) History of colon polyps History of pancreatitis Home Medications ?Medication ?Instructions ?Recorded ?Last Taken ?Type hydrochlorothiazide 25 mg tablet 25 mg PO DAILY 07/21/19 Unknown History lisinopril 10 mg tablet 20 mg PO DAILY 10/20/22 09/18/24 History omeprazole 20 mg capsule,delayed 20 mg PO DAILY 10/20/22 09/18/24 History release duloxetine 20 mg capsule,delayed 20 mg PO QDAY 06/20/24 09/18/24 History release (Cymbalta) Allergy/AdvReac Type Severity Reaction Status Date / Time No Known Allergies Allergy Verified 08/18/24 13:30 Family History Father Hypertension Cancer melanoma and prostate Thyroid disorder Heart disease Surgical History History of cholecystectomy Status post left foot surgery History of colonoscopy (~07/2016) History of 3 sections Social History Smoking Status: Light Smoker (<10/day) alcohol intake: current alcohol intake frequency: a few times a month substance use type: does not use ROS Constitutional Constitutional: Denies chills, fever(s), frequent falls, lethargy or weakness Eyes Eyes: Denies blind spots, change in vision or loss of vision ENT HEENT: Denies bleeding gums, hoarseness or sore throat Cardiovascular Cardiovascular: Denies abdominal pain, bluish discoloration of hand/feet, chest pain with activity, claudication, cold extremities, cyanosis, dyspnea on exertion, erythema on extremities, irregular heart rhythm, leg edema, leg ulcers, numbness in extremities or weakness in extremities Respiratory/Chest Respiratory/Chest: Denies cough, excessive phlegm production, shortness of breath at rest, shortness of breath with exertion or wheezing Gastrointestinal Gastrointestinal: Denies anorexia, change in stool character, constipation, diarrhea, melena or rectal bleeding Genitourinary Genitourinary: Denies dysuria or hematuria Musculoskeletal Musculoskeletal: Denies abnormal gait Integumentary Integumentary: Reports other Details: ; Denies erythema, non-healing lesions or wounds Neurologic Neurologic: Denies abnormal speech, focal weakness, headache(s), loss of vision, numbness, paresthesias or sensory deficit Hematologic/Lymphatic Hematologic/Lymphatic: Denies easy bleeding, easy bruising or lymphadenopathy Vital Signs Vital Signs Vital Signs: Weight Weight: 299 lb Body Mass Index (BMI) 49.7 Physical Exam Const alert, oriented x3, no apparent distress and healthy appearing General Appearance: cooperative; Negative for combative or lethargic Orientation / Consciousness: awake Exam Limitations: no limitations HEENT Head and Scalp: normocephalic and atraumatic Eyes EOMs intact bilaterally General Eye: normal appearance of both eyes Neck full ROM General: trachea midline Resp normal respiratory effort and no use of accessory muscles Effort and Inspection: Negative for labored, stridor or audible wheezes Cardio regular rate and regular rhythm Back/Spine Cervical Spine: cervical ROM normal Extremity full ROM, normal capillary refill and no clubbing, cyanosis or edema Skin no rashes or lesions noted and no wounds Neuro oriented x3, CN's II-XII intact bilaterally, no focal motor deficits and no sensory deficits noted Psych thought process normal, cooperative, affect normal, speech normal and activity/motor behavior normal Assessment & Plan Assessment/Plan (1) Symptomatic varicose veins: QUALIFIERS: Laterality: left Qualified Code(s): I83.892 - Varicose veins of left lower extremity with other complications PLAN: -painful foot varicose veins, refractory to compression tx -foam ablation
--- NOTE | 2024-09-18 14:48 | PCM.OPRPT ---
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 She previously had varicose veins excised at this location approximate 40 years prior and these have slowly recurred over the last several decades. These have been refractory to compression garments so she presents now for foam ablation of the varicose vein clusters. Description of procedure: Upon obtaining informed consent and verification correct patient procedure site the patient taken to the [facility] where she was positioned prepped and draped in usual sterile fashion. Timeout was performed consultation administered Versed and fentanyl. Ultrasound was used to evaluate the varicose vein clusters and these each were marked on the skin. The distalmost cluster was adjacent to the base of the first digit and fortunately appeared to be the easiest to access. Skin overlying this cluster was anesthetized 1% lidocaine the vessel accessed with a butterfly needle 23-gauge under ultrasound guidance. Through this butterfly catheter 3 cc of Varithena foam a bleeding agent was infused under ultrasound visualization. The ultrasound confirmed transit of the foam to adjacent vein clusters and in fact included all of the marked vessel clusters. There did not appear to be any transit of the foam to the deep system and it did extend toward the origin of the saphenous vein at the malleolus where manual pressure was held to prevent more cephalad extension. After manual pressure was completed multiple calf flexions were performed in order to flush out any potential deep system thrombus and then dry sterile compression dressings were applied. The patient was then taken to the recovery area with plan discharged home. Surgical Findings: See above Complications Complications: No
== END 2024-09-18 11:15 | disposition home or self-care (01) ==
PROVIDERS: PCP Physician Assistant; Referring Provider Surgery Trauma Surgery; Visit Provider Surgery Trauma Surgery
DX: I83.812 Varicose veins of left lower extremity with pain (principal); K21.9 Gastro-esophageal reflux disease without esophagitis; I10 Essential (primary) hypertension; Z90.49 Acquired absence of other specified parts of digestive tract; F17.210 Nicotine dependence, cigarettes, uncomplicated
CPT/HCPCS: 36465; 99152; 99153

== ENCOUNTER → 2024-09-22 | Outpatient (CLI) | payer OTHER, SELFPAY | END | disposition home or self-care (01) | LOC: CVS 09:41 | PROVIDERS: PCP Physician Assistant; Referring Provider Surgery Trauma Surgery; Visit Provider Surgery Trauma Surgery | DX: I83.892 Varicose veins of left lower extremity with other complications (principal); Z48.812 Encounter for surgical aftercare following surgery on the circulatory system | CPT/HCPCS: 93971 ==

== ENCOUNTER → 2025-01-23 | Outpatient (CLI) | payer OTHER, SELFPAY ==
--- NOTE | 2025-01-23 08:41 | VDLE_ITS ---
Reason For Study Reason For Study: Pain LLE RIGHT LEFT CFV is compressible, spontaneous, phasic, competent GSV is normal. and demonstrates normal augmentation. CFV is compressible, spontaneous, phasic, competent, Procedure and demonstrates normal augmentation. This is a venous duplex using B-mode, color flow and FV is compressible, spontaneous, phasic, competent spectral Doppler. and demonstrates normal augmentation. Exam performed in department. POP V is compressible, spontaneous, phasic, competent A preliminary report was called and/or faxed to and demonstrates normal augmentation. Renate. T/P Trunk is compressible. PTV is compressible. LT PerV is compressible. SFJ is competent and measures 0.72cm x 0.75 cm. GSV proximal thigh measures 0.60cm x 0.66 cm. GSV at knee measures 0.41cm x 0.39 cm. GSV is competent throughout. ASV proximal calf is INCOMPETENT for greater than 0.5 seconds and measures 0.45cm x 0.41 cm. SSV mid calf is competent and measures 0.37cm x 0.36 cm. Patient unable to tolerate compressions mid/distal thigh; relied on color doppler Varicose veins in foot are NONCOMPRESSIBLE s/p foam ablation Posterior calf ASV at prox (SSV Branch) is INCOMPETENT for greater than 0.5 seconds and measures 0.74cm x 0.82cm. VL/Venous Duplex US, Unilateral Interpretation Summary Deep veins of the left lower extremity are patent and compressible segmentally. There is no evidence of left lower extremity deep vein thrombosis. The left great saphenous vein appears patent an d compressible segmentally. Positive for reflux in left calf accessory saphenous veins. Occluded varicosities on dorsum of foot consistent with recent ablation. Ordering Physician: Moody Dewitt Referring Physician: Eve Vega Performed By: Joselin Chaudhari, DEE DEE, RVT
== END | disposition home or self-care (01) ==
LOC: CVS 08:40
PROVIDERS: PCP Physician Assistant; Referring Provider Surgery Trauma Surgery; Visit Provider Surgery Trauma Surgery
DX: I83.892 Varicose veins of left lower extremity with other complications (principal); I87.2 Venous insufficiency (chronic) (peripheral)
CPT/HCPCS: 93971